=== PATIENT | male | born 1945 | race Caucasian/White ===

== ENCOUNTER 2016-08-03 07:49 | Inpatient (IN) ==
[2016-07-28 13:06] LABS: Appearance,Urine CLEAR; Bilirubin,Urine NEG (NEG); Color,Urine YELLOW; Glucose,Urine (UA) NEGATIVE (NEG); Leukocyte Esterase,Urine NEG /uL (NEG); Nitrate,Urine NEG (NEG); Protein,Urine NEG (NEG); Specific Gravity,Urine 1.023 (1.000-1.035); Urine Blood NEG mg/dL (<0.03); Urobilinogen,Urine NEG (NEG)
[2016-07-28 13:48] LABS: Basophils # (Auto) 0.1 K/mcL (0.0-0.3); Basophils % (Auto) 1.2 % (0.0-2.0); Eosinophils # (Auto) 0.2 K/mcL (0.0-0.7); Eosinophils % (Auto) 4.1 % (0.0-7.0); Granulocytes % (Auto) 60.6 % (38.0-78.0); Lymphocytes # (Auto) 1.3 K/mcL (1.5-4.8); Lymphocytes % (Auto) 27.1 % (15.5-49.0); Mean Cell Volume 84.8 fL (80.0-100.0); Mean Corpuscular HGB Conc 34.8 g/dL (31.0-36.0); Mean Corpuscular Hemoglobin 29.5 pg (26.0-34.0); Monocytes # (Auto) 0.3 K/mcL (0.1-0.9); Platelet Count 228 K/mcL (140-440); RBC 5.15 M/mcL (4.50-5.90); Red Cell Distribution Width 12.5 % (11.5-14.5)
[2016-07-28 13:58] LABS: Blood Urea Nitrogen 16 mg/dl (8-23)
[~2016-08-03 07:49] MED LIST: ACETAMINOPHEN 500 MG TABLET PO SCH; CELECOXIB 200 MG CAPSULE PO SCH; PREGABALIN 150 MG CAPSULE PO SCH; ceFAZolin 1 GM VIAL IV SCH; oxyCODONE 10 MG TAB.ER.12H PO SCH
[2016-08-03] MEDS ORDERED: KETOROLAC 30 MG, ROPIVACAINE HCL/PF 49.5 ML, EPINEPHrine 0.5 MG, 0.9 % SODIUM CHLORIDE ... IJ ONE (08:00)
[2016-08-03] MEDS ORDERED: 0.9 % SODIUM CHLORIDE 250 ML IV SCH (08:30)
[2016-08-03] MEDS ORDERED: GENTAMICIN SULFATE 800 MG/20 ML VIAL IR ONE (10:53)
[2016-08-03] MEDS ORDERED: ONDANSETRON 4 MG/2 ML VIAL IV ONE (12:30)
[2016-08-03] MEDS ORDERED: MIDAZOLAM 5 MG/5 ML VIAL IV ONE (12:30)
[2016-08-03] MEDS ORDERED: ROPIVACAINE HCL/PF 30 ML VIAL IJ ONE (12:30)
[2016-08-03] MEDS ORDERED: TRANEXAMIC ACID 1,000 MG/10 ML VIAL IV ONE (12:30)
[2016-08-03] MEDS ORDERED: FLUMAZENIL 0.1 MG/ML ML IV PRN (13:40)
[2016-08-03] MEDS ORDERED: ePHEDrine 50 MG/ML AMPUL IV PRN (13:40)
[2016-08-03] MEDS ORDERED: diphenhydrAMINE 50 MG/ML VIAL IV PRN (13:40)
[2016-08-03] MEDS ORDERED: ATROPINE SULFATE 0.4 MG/ML VIAL IV PRN (13:40)
[2016-08-03] MEDS ORDERED: ONDANSETRON 4 MG/2 ML VIAL IV PRN ×2 (13:40→14:11)
[2016-08-03] MEDS ORDERED: METOPROLOL TARTRATE 5 MG/5 ML VIAL IV PRN (13:40)
[2016-08-03] MEDS ORDERED: HYDROmorphone 2 MG/ML SYRINGE IV PRN ×2 (13:40→15:41)
[2016-08-03] MEDS ORDERED: NALOXONE HCL 0.4 MG/ML VIAL IV PRN (13:40)
[2016-08-03] MEDS ORDERED: BENZOCAINE/MENTHOL 1 LOZENGE PO PRN ×2 (13:40→14:11)
[2016-08-03] MEDS ORDERED: MEPERIDINE 25 MG/ML SYRINGE IV PRN (13:40)
[2016-08-03] MEDS ORDERED: METHOCARBAMOL 1,000 MG/10 ML VIAL IV PRN (13:40)
[2016-08-03] MEDS ORDERED: IPRATROPIUM/ALBUTEROL 3 ML AMPUL.NEB NEB PRN (13:40)
[2016-08-03] MEDS ORDERED: fentaNYL 100 MCG/2 ML VIAL IV PRN (13:40)
[2016-08-03] MEDS ORDERED: LACTATED RINGERS 1,000 ML IV SCH (13:45)
[2016-08-03] MEDS ORDERED: WARFARIN 5 MG TABLET PO SCH (14:00)
--- NOTE | 2016-08-03 14:10 | Brief Operative Note ---
Date of procedure: 08/03/16 Pre-op diagnosis: Right knee djd 3compartment Post-op diagnosis: same Procedure: right knee TKA Grafts/Implants: Yes (rob 7 fem 8 tibia 39 patella) Anesthesia: GETA Findings: djd of all three compartment Complications: none Complications Description: 08/03/16 14:10 none Surgeon: Andrae Garcia Health Assistant: Sarabjit Armstrong Estimated blood loss (cc): 50 Tourniquet Time (Minutes): 45 Specimens Removed/Pathology: none sent Condition: stable Disposition: PACU
[2016-08-03] MEDS ORDERED: BISACODYL 10 MG SUPP.RECT PR PRN (14:11)
[2016-08-03] MEDS ORDERED: TRANEXAMIC ACID 1,000 MG/10 ML VIAL IV SCH (14:11)
[2016-08-03] MEDS ORDERED: POLYETHYLENE GLYCOL 3350 17 GM PACKET PO PRN (14:11)
[2016-08-03] MEDS ORDERED: FLEETS ADULT ENEMA PR PRN (14:11)
--- NOTE | 2016-08-03 15:27 | Operative Note ---
DATE OF OPERATION: 08/03/2016 PREOPERATIVE DIAGNOSIS: Right knee medial compartment arthritis. POSTOPERATIVE DIAGNOSIS: Arthritis of all three compartments both medial, trochlear groove and lateral with full-thickness small defects. PROCEDURE: With these findings procedure was right total knee arthroplasty. SURGEON: Andrae Garcia MD. FEED MANAGER: Sarabjit Armstrong PA-C. ANESTHESIA: Spinal with IV sedation. COMPLICATIONS: None. TOTAL TOURNIQUET TIME: 45 minutes. DESCRIPTION OF PROCEDURE: Once this was confirmed, then the right knee was sterilely prepped and draped in the usual sterile fashion. We confirmed this was the operative site. One gram of tranexamic acid was given, and once this was done we exsanguinated the leg and inflated the tourniquet to 250 pounds of pressure. We made a midline incision. A mid vastus approach was performed. We inspected all compartments of the knee. This revealed severe arthritis of definitely the medial compartment, to a lesser degree the trochlear groove and laterally. He had a partially torn ACL as well. With these findings, we decided to proceed with a total knee arthroplasty. We placed an intramedullary guide hole in the femur and the tibia. With this, we used an intramedullary guide shivam on the femur, cutting this at 5 degrees of valgus and 3 degrees of external rotation. This was sized to a size 7 component. The cuts were made anterior and posterior with a block and chamfer cuts. We irrigated, removed osteophytes and then proceeded with the tibial cut. The tibia did have a significant deformity at the distal portion. With this, we made our cuts based on the proximal fragment. We cut the knee with anatomic alignment. We then cut this at a depth of 9 mm, sized the tibia to a size 9, removing the remnants of the meniscus and spurs posteriorly. We then capped the tibia with a size 8 baseplate, the femur with a size 7 femur. Standard thickness poly gave excellent alignment and fixation. He did have a deformity distal. This was due to a fracture. The treatment was at this point to proceed with resurfacing of the patella as this had a full-thickness defect as well. This measured approximately 26 mm. This was cut to 16 mm in thickness. We then used an oval offset 39 mm patellar button which was drilled into place. Once this was done, we made a small chamfer cut laterally and this tracked very well. We irrigated thoroughly and then cemented into place after preparing the bone with pulse lavage and CO2 to dry the bone. These components both were cemented into place. Excess cement was removed from the femur and the tibia. A standard thickness 9 mm poly was inserted. This was placed at 45 degrees, and we prepared the patella, cementing into place a 39 mm oval patella. This fit very nicely. We irrigated thoroughly and then deflated the tourniquet at 45 minutes. We controlled bleeding, washed the knee with irrigation to make sure there was no other bony or cement fragments. We kept the knee at 45 degrees until cement was dry. We irrigated thoroughly, and we then closed the capsule with #2 FiberWire and an 0 double-armed Maxon stitch. The skin was closed with 2-0 Vicryl and adhesive closure. The patient tolerated this well without complication. RBH:randy Job ID: [id number] Doc ID: [id number] Andrae Garcia MD
[2016-08-03] MEDS ORDERED: ACETAMINOPHEN 325 MG TABLET PO PRN (15:42)
[2016-08-03] MEDS ORDERED: HYDROcodone/APAP 10/325MG TABLET PO PRN (15:42)
--- NOTE | 2016-08-03 15:57 | XRay Report ---
HISTORY: Reason for Exam:Post-Op Total Knee FINDINGS: There is a well positioned total knee prosthesis. On the lateral image there is a cluster of calcifications located between the top of the patella and the adjacent metal prosthesis secured to the distal femur. The largest measures 2 x 10 mm. These calcifications are not seen in the AP view. There is a large spur along the anterior superior border of the patella. No fractures present.. IMPRESSION: Well-positioned knee prosthesis Soft tissue calcifications in the region of the patellofemoral joint. Interpreted and Authenticated by: Benjamin Cornell 08/03/16
[2016-08-03] MEDS: 0.45 % SODIUM CHLORIDE 1,000 ML IV SCH ×2 (16:57→22:21)
[2016-08-03] MEDS: KETOROLAC 15 MG/ML VIAL IV SCH ×2 (18:36→23:44)
[2016-08-03] MEDS ORDERED: SENNOSIDES 1 TABLET PO SCH (21:00)
[2016-08-03] MEDS ORDERED: TEMAZEPAM 15 MG CAPSULE PO PRN (21:00)
[2016-08-03] MEDS: ASPIRIN 325 MG ENTERIC COATED TABLET PO SCH (21:31)
[2016-08-03] MEDS: DOCUSATE SODIUM 100 MG CAPSULE PO SCH (21:31)
[2016-08-03] MEDS: ceFAZolin 1 GM VIAL IV SCH (21:32)
[2016-08-03] MEDS: 0.9 % SODIUM CHLORIDE 10 ML SYRINGE IV SCH (22:21)
[2016-08-04] MEDS: MAGNESIUM HYDROXIDE 30 ML ORAL.SUSP PO PRN ×2 (01:55→10:33)
[2016-08-04] MEDS: 0.45 % SODIUM CHLORIDE 1,000 ML IV SCH ×4 (02:29→21:35)
[2016-08-04] MEDS: ceFAZolin 1 GM VIAL IV SCH (04:21)
[2016-08-04] MEDS: KETOROLAC 15 MG/ML VIAL IV SCH ×4 (05:21→23:58)
[2016-08-04] MEDS: 0.9 % SODIUM CHLORIDE 10 ML SYRINGE IV SCH ×3 (06:23→21:35)
[2016-08-04] MEDS ORDERED: LIDOCAINE 2% URO-JET 5 ML JEL.PF.APP UR ONE (06:42)
[2016-08-04] MEDS ORDERED: PANTOPRAZOLE 40 MG TABLET PO SCH (07:30)
--- NOTE | 2016-08-04 07:44 | Orthopedic Progress Note ---
Subjective Patient information: Note initiated : 08/04/16 at 7:42 am Service Date, if different from initiated Date: [] Patient: Myron Arana 71 y/o M admitted on 08/03/16 for Right Partial Medial Ronald Uni Knee. Chief Complaint: [I attempted to see our patient and was instructed by Dr Myers that it "wasn't a good idea" as he was attempting to place a catheter due to urinary obstruction. ] Objective Vital signs: Vital Signs Temp Pulse Resp BP Pulse Ox 08/04/16 05:00 95 08/04/16 04:00 97.8 F 57 L 14 125/72 93 08/04/16 01:00 95 08/03/16 23:24 97.9 F 54 L 14 152/86 92 08/03/16 21:00 95 08/03/16 20:00 97.5 F L 59 L 14 149/86 95 08/03/16 17:55 98.0 F 55 L 18 142/77 96 08/03/16 17:09 96 08/03/16 16:55 50 L 18 163/107 95 08/03/16 16:25 60 18 157/83 98 08/03/16 15:55 56 L 18 177/75 95 08/03/16 15:40 60 18 157/78 97 08/03/16 15:25 48 L 16 149/82 99 08/03/16 15:10 96.1 F L 53 L 16 125/74 98 08/03/16 15:01 98.1 F 67 15 131/67 100 08/03/16 14:55 61 13 124/69 100 08/03/16 14:40 59 L 14 129/76 97 08/03/16 14:23 97.4 F L 57 L 16 136/66 97 08/03/16 08:08 97.8 F 47 L 16 135/83 100 Intake and Output 08/03/16 08/04/16 08/04/16 21:59 05:59 13:59 Intake Total 2340 / 2340 2200 / 2200 Output Total 751 / 751 920 / 920 Balance 1589 / 1589 1280 / 1280 Intake: IV 1500 / 1500 1000 / 1000 Sodium Chloride 0.45% 1, 1000 / 1000 000 ml @ 125 mls/hr IV . Q8H [facility] Rx#:[id number] Oral 840 / 840 1200 / 1200 Output: Urine Catheter Amount 150 / 150 Void Amount 550 / 550 920 / 920 Straight 375 / 375 Uretheral (Loya) 200 / 200 # of times incontinent of 1 / 1 urine Estimated Blood Loss 50 / 50 Other: Meal Dinner peaches, ice cream Percent of Meal Consumed 100% Feeding Ability Assist with Tray Set Up Weight 248 lb Intake & Output: Intake & Output 08/03/16 08/04/16 08/04/16 21:59 05:59 13:59 Intake Total 2340 / 2340 2200 / 2200 Output Total 751 / 751 920 / 920 Balance 1589 / 1589 1280 / 1280 Weight 248 lb Intake: IV 1500 / 1500 1000 / 1000 Sodium Chloride 0.45% 1, 1000 / 1000 000 ml @ 125 mls/hr IV . Q8H [facility] Rx#:[id number] Oral 840 / 840 1200 / 1200 Output: Urine Catheter Amount 150 / 150 Void Amount 550 / 550 920 / 920 Straight 375 / 375 Uretheral (Loya) 200 / 200 # of times incontinent of 1 / 1 urine Estimated Blood Loss 50 / 50 Other: Meal Dinner peaches, ice cream Percent of Meal Consumed 100% Feeding Ability Assist with Tray Set Up Incision: Yes healing Incision clean and dry: Yes Dressing: Yes clean, Yes dry Weight bearing status: partial Neurological exam IM: Yes motor sensory intact, Yes neurovascular intact Extremities exam IM: Yes Foot pink and warm, Yes neurovascular intact - Labs CBC & BMP: 08/04/16 05:20 07/28/16 10:53 Labs: Orthopedic Labs 07/28/16 10:53 PT 13.0 INR 1.0 APTT 33 08/04/16 07/28/16 05:20 10:53 Hgb 15.2 Hct 43.0 43.7 Assessment and Plan (1) Hx of total knee arthroplasty Pt is being taken to Surgery on an emergent basis by Dr Myers due to urology issues. Pt stable from Orthopaedic standpoint otherwise. Status: Acute
[2016-08-04] MEDS ORDERED: ceFAZolin 1 GM VIAL IV SCH (07:45)
--- NOTE | 2016-08-04 07:47 | Discharge Summary ---
Ortho Discharge - TKA - Patient Instructions Diet: Regular Diet Activity: activity as tolerated, weight bearing as tolerated Total Knee Protocol: For Total Knee: Start ROM MOY with stationary bike or rocking chair. Work on gaining full extension of knee. Posterior dislocation precautions provided. Hip abductor strengthening and gait training instructions provided. Apply Cryocuff as instructed. Dressing Care: May shower in 2 days Additional Dressing Instructions: Pt stable for Ortho D/c when cleared by Urology Patient Education: Total Knee Replacement (DC) - Problem Maintenance (1) Hx of total knee arthroplasty Status: Acute - Follow Up Plan Follow Up Appointments: Andrae Garcia MD [Physician] - 08/18/16 10:00 am Disposition: Home, Self-Care Prognosis: Good Rehab Potential: Good I certify that the patient requires SNF services: No Overall status at discharge: patient is progressing back to baseline - Orders For Discharge Prescriptions: Aspirin [Ecotrin] 325 mg PO BID #60 tab.ec Docusate Sodium [Colace] 100 mg PO BID #60 capsule HYDROcodone/APAP 10/325MG [[place] 10/325Mg] 1 - 2 tab PO Q4HP PRN #75 tablet PRN Reason: Pain
--- NOTE | 2016-08-04 08:34 | History and Physical Report ---
DATE OF ADMISSION: 08/03/2016 HISTORY OF PRESENT ILLNESS: The patient is a 71-year-old gentleman who I have seen in the past for urinary obstruction. Recently he has undergone knee surgery and could not urinate. A catheter had to be passed, and he was straight cathed twice. He still had a high residual, and the nurses attempted to pass a catheter. It appeared that they may have blown up the balloon in the prostate. I did attempt to pass filiform and follower and was unable and could not pass anywhere from a 14 to a 22 Nepali Loya coude tip. Again, I could not get this to pass. Therefore he presents now for cystoscopy and catheter placement. PAST MEDICAL HISTORY: Significant for arthritis, gastroesophageal reflux. ALLERGIES: None. CURRENT MEDICATIONS: As per listed in the hospital notes. PAST SURGICAL HISTORY: Photovaporization of the prostate, hemorrhoidectomy, craniectomy, appendectomy. REVIEW OF SYSTEMS: CARDIAC: Denies any chest pain. RESPIRATORY: No wheezing, coughing or asthma. PSYCHOLOGICAL: No depression or mood swings. PHYSICAL EXAMINATION: GENERAL: This is a pleasant gentleman in slight distress. VITAL SIGNS: As listed per notes. HEENT: Atraumatic, normocephalic. Extraocular movements are intact. Pupils equal and reactive to light and accommodation. No thyromegaly is noted. No mucosal lesions. NECK: Supple. Trachea is midline. HEART: Regular rate and rhythm. LUNGS: Clear to auscultation. ABDOMEN: Distended bladder. : Normal phallus. Circumcised. Blood at the meatus. Prostate exam was deferred. EXTREMITIES: Without clubbing, cyanosis or edema. NEUROLOGIC: Intact. IMPRESSION: Patient with urinary retention. This feels like a bladder neck contracture and I have talked to him about this. I have attempted to pass catheters and have been unable and so we will take him to surgery for visualization and catheter placement. I have talked to him about the procedure and complications, including bleeding, infection, pain, need for suprapubic tube, and he understands. Surgery will be scheduled this morning. He will receive preoperative antibiotics. DARRICK:randy Job ID: [id number] Doc ID: [id number] Cj Giordano MD
[2016-08-04] MEDS ORDERED: ceFAZolin 1 GM VIAL ONE (08:39)
--- NOTE | 2016-08-04 08:57 | Brief Operative Note ---
Date of procedure: 08/04/16 Pre-op diagnosis: bnc Procedure: dviu Grafts/Implants: No Anesthesia: GETA Findings: see note Complications: none Surgeon: Cj Giordano Specimens Removed/Pathology: none sent Condition: stable Disposition: PACU
[2016-08-04] MEDS ORDERED: NON FORMULARY MEDICATION 1 DOSE MISCELL (Aspirin [Adult Low Dose Aspirin Ec] 81 MG) PO SCH (09:00)
[2016-08-04] MEDS ORDERED: ONDANSETRON 4 MG/2 ML VIAL IV PRN ×2 (09:11→10:43)
[2016-08-04] MEDS ORDERED: FLUMAZENIL 0.1 MG/ML ML IV PRN (09:11)
[2016-08-04] MEDS ORDERED: MEPERIDINE 25 MG/ML SYRINGE IV PRN (09:11)
[2016-08-04] MEDS ORDERED: fentaNYL 100 MCG/2 ML VIAL IV PRN (09:11)
[2016-08-04] MEDS ORDERED: NALOXONE HCL 0.4 MG/ML VIAL IV PRN (09:11)
[2016-08-04] MEDS ORDERED: ePHEDrine 50 MG/ML AMPUL IV PRN (09:11)
[2016-08-04] MEDS ORDERED: HYDROmorphone 2 MG/ML SYRINGE IV PRN ×2 (09:11→10:43)
[2016-08-04] MEDS ORDERED: BENZOCAINE/MENTHOL 1 LOZENGE PO PRN ×2 (09:11→10:43)
[2016-08-04] MEDS ORDERED: diphenhydrAMINE 50 MG/ML VIAL IV PRN (09:11)
[2016-08-04] MEDS ORDERED: METOPROLOL TARTRATE 5 MG/5 ML VIAL IV PRN (09:11)
[2016-08-04] MEDS ORDERED: IPRATROPIUM/ALBUTEROL 3 ML AMPUL.NEB NEB PRN (09:11)
[2016-08-04] MEDS ORDERED: OPIUM/BELLADONNA ALKALOIDS 60 MG SUPP.RECT PR PRN (09:11)
[2016-08-04] MEDS ORDERED: ATROPINE SULFATE 0.4 MG/ML VIAL IV PRN (09:11)
[2016-08-04] MEDS ORDERED: LACTATED RINGERS 1,000 ML IV SCH (09:15)
[2016-08-04] MEDS: DOCUSATE SODIUM 100 MG CAPSULE PO SCH ×2 (10:31→21:34)
[2016-08-04] MEDS: ASPIRIN 325 MG ENTERIC COATED TABLET PO SCH ×2 (10:32→21:35)
--- NOTE | 2016-08-04 10:34 | Operative Note ---
DATE OF OPERATION: 08/04/2016 PREOPERATIVE DIAGNOSIS: Bladder neck contracture. POSTOPERATIVE DIAGNOSIS: Bladder neck contracture. PROCEDURE: Incision of bladder neck contracture and catheter placement. SURGEON: Cj Giordano MD. INDICATION: The patient is a 71-year-old gentleman status post photovaporization of the prostate in the past. Recently he has had knee surgery and found it difficult to urinate. Loya catheter was attempted to be passed and this was impossible. He presents now for cystoscopy and treatment. PROCEDURE: The patient was identified and consent was signed. He was given monitored anesthesia care, also 2 grams of Ancef. He was placed in lithotomy position and prepped and draped in a standard fashion. Cystourethroscopy showed normal-appearing urethra. At the bladder neck there was a 14-Canadian bladder neck contracture. I was then able to pass a 17 scope through this and placed a wire into the bladder. I then used the direct vision urethrotome and made an incision at the bladder neck at the 11, 1, 3 and 9 o'clock positions. This opened up the prostate well and was able to enter the bladder. A 20-[place] tip catheter was placed without difficulty and this drained clear urine. The patient was then awoken and taken to recovery room in stable condition. He tolerated the procedure well. RAline:randy Job ID: [id number] Doc ID: [id number] Cj Giordano MD
[2016-08-04] MEDS ORDERED: BISACODYL 10 MG SUPP.RECT PR PRN (10:43)
[2016-08-04] MEDS ORDERED: ACETAMINOPHEN 325 MG TABLET PO PRN (10:43)
[2016-08-04] MEDS ORDERED: FLEETS ADULT ENEMA PR PRN (10:43)
[2016-08-04] MEDS ORDERED: MAGNESIUM HYDROXIDE 30 ML ORAL.SUSP PO PRN (10:43)
[2016-08-04] MEDS ORDERED: HYDROcodone/APAP 10/325MG TABLET PO PRN (10:43)
[2016-08-04] MEDS ORDERED: TEMAZEPAM 15 MG CAPSULE PO PRN (10:43)
[2016-08-04] MEDS ORDERED: POLYETHYLENE GLYCOL 3350 17 GM PACKET PO PRN (10:43)
[2016-08-04] MEDS ORDERED: SENNOSIDES 1 TABLET PO SCH (21:00)
[2016-08-05] MEDS: 0.45 % SODIUM CHLORIDE 1,000 ML IV SCH ×2 (00:58→11:37)
[2016-08-05] MEDS: KETOROLAC 15 MG/ML VIAL IV SCH ×2 (05:04→11:52)
[2016-08-05] MEDS: 0.9 % SODIUM CHLORIDE 10 ML SYRINGE IV SCH (05:05)
--- NOTE | 2016-08-05 07:11 | Orthopedic Progress Note ---
Subjective Patient information: Note initiated : 08/05/16 at 7:10 am Service Date, if different from initiated Date: [] Patient: Myron Arana 71 y/o M admitted on 08/03/16 for Right Partial Medial Ronald Uni Knee. Chief Complaint: [feels much better amb well ] Objective Vital signs: Vital Signs Temp Pulse Resp BP BP Pulse Ox 08/05/16 03:35 97.8 F 67 14 115/60 92 08/05/16 01:00 95 08/05/16 00:00 98.2 F 66 14 154/87 94 08/04/16 21:00 95 08/04/16 20:00 97.5 F L 75 14 129/77 97 08/04/16 17:00 97 08/04/16 15:16 96.9 F L 60 17 149/80 97 08/04/16 13:40 93 08/04/16 12:25 64 156/87 97 08/04/16 11:30 98.3 F 72 157/86 94 08/04/16 11:00 63 157/89 95 08/04/16 10:30 71 174/91 95 08/04/16 10:15 59 L 157/91 96 08/04/16 10:00 67 164/84 98 08/04/16 09:45 97.6 F 64 12 170/91 98 08/04/16 09:30 98.9 F 64 19 120/61 97 08/04/16 09:10 64 14 128/61 94 08/04/16 08:57 99.1 F 70 16 138/78 97 08/04/16 07:56 97.2 F L 58 L 16 164/76 93 Intake and Output 08/04/16 08/05/16 08/05/16 21:59 05:59 13:59 Intake Total 300 / 300 200 / 200 Output Total 1100 / 1100 900 / 900 Balance -800 / -800 -700 / -700 Intake: Oral 300 / 300 200 / 200 Output: Urine Catheter Amount 1100 / 1100 900 / 900 Other: Weight 249 lb 8 oz Intake & Output: Intake & Output 08/04/16 08/05/16 08/05/16 21:59 05:59 13:59 Intake Total 300 / 300 200 / 200 Output Total 1100 / 1100 900 / 900 Balance -800 / -800 -700 / -700 Weight 249 lb 8 oz Intake: Oral 300 / 300 200 / 200 Output: Urine Catheter Amount 1100 / 1100 900 / 900 Incision: Yes healing Incision clean and dry: Yes Dressing: Yes clean Weight bearing status: full Neurological exam IM: Yes oriented X3, Yes neurovascular intact Extremities exam IM: Yes joint swelling, Yes Foot pink and warm, Yes neurovascular intact (dc home) - Labs CBC & BMP: 08/04/16 05:20 07/28/16 10:53 Labs: Orthopedic Labs 07/28/16 10:53 PT 13.0 INR 1.0 APTT 33 08/04/16 07/28/16 05:20 10:53 Hgb 15.2 Hct 43.0 43.7
[2016-08-05] MEDS ORDERED: PANTOPRAZOLE 40 MG TABLET PO SCH (07:30)
--- NOTE | 2016-08-05 07:48 | General Surgery Progress Note ---
Subjective Narrative: Note initiated : 08/05/16 at 7:47 am Service Date, if different from initiated Date: [] Patient: Myron Arana 71 y/o M admitted on 08/03/16 for Right Partial Medial Ronald Uni Knee. Chief Complaint: [] Patient did well overnight with his catheter. His urine is clear this morning and I removed the catheter. We will plan to follow up with him in 2 weeks. he should urinate before she goes home. Objective Temp Pulse Resp BP Pulse Ox 97.8 F 67 14 115/60 95 08/05/16 03:35 08/05/16 03:35 08/05/16 03:35 08/05/16 03:35 08/05/16 07:26 - Additional Data Intake & Output - Last 24 hours: Intake & Output 08/03/16 08/04/16 08/05/16 08/06/16 05:59 05:59 05:59 05:59 Intake Total 4540 / 4540 2740 / 2740 Output Total 1671 / 1671 3725 / 3725 Balance 2869 / 2869 -985 / -985 Weight 248 lb 249 lb 8 oz - Labs 08/04/16 05:20 07/28/16 10:53 Medical - PN: A/P - Time Spent With Patient Total time spent is greater than 50% in coordination of care (as documented) at patient's floor/unit and/or counseling patient:
[2016-08-05] MEDS: DOCUSATE SODIUM 100 MG CAPSULE PO SCH (09:58)
[2016-08-05] MEDS: ASPIRIN 325 MG ENTERIC COATED TABLET PO SCH (09:58)
[2016-08-05] MEDS ORDERED: PNEUMOCOCCAL 23-VAL P-SAC VAC 0.5 ML VIAL IM ONE ×2 (10:00)
--- NOTE | 2016-08-21 14:06 | Discharge Summary ---
Ortho Discharge - TKA - Patient Instructions Diet: Regular Diet Activity: activity as tolerated, weight bearing as tolerated Total Knee Protocol: For Total Knee: Start ROM MOY with stationary bike or rocking chair. Work on gaining full extension of knee. Posterior dislocation precautions provided. Hip abductor strengthening and gait training instructions provided. Apply Cryocuff as instructed. Patient Education: Hydrocodone/Acetaminophen (By mouth), Total Knee Replacement (DC), Loya Catheter Placement and Care (DC) Additional Instructions: [facility] [phone] with Jessica Friday 08/11 @ 9:15 AM. Do the exercises at home that Physical therapy gave you. Wear comfortable clothes (shorts). Take photo ID and insurance cards with you to physical therapy and to excelsior picker walker at [facility]. Consider taking pain meds 45 min before physical therapy You have Dermabond (a dressing with a mesh-like appearance), leave open to air. You may start showering on post op day #2. The Dermabond dressing can get wet, do not scrub dressing. Pat dry. Use over the counter stool softeners or laxatives to avoid constipation associated with narcotic use. Use your Cryocuff or ice packs as directed, on for 20 minutes at a time throughout the day. This and elevation will help with pain and swelling. Call your physician for fever greater than 100.5 or pain not controlled by medication. Your prescriptions are with your discharge information. [facility] Take your Aspirin twice daily as prescribed by your doctor for 30 days to prevent blood clots. - Follow Up Plan Follow Up Appointments: Andrae Garcia MD [Physician] - 08/18/16 10:00 am Cj Giordano MD [Physician] - (Dr Giordano will call you tomorrow) Disposition: Home, Self-Care Prognosis: Good Rehab Potential: Good I certify that the patient requires SNF services: No - Orders For Discharge Prescriptions: Aspirin [Ecotrin] 325 mg PO BID #60 tab.ec Docusate Sodium [Colace] 100 mg PO BID #60 cap HYDROcodone/APAP 10/325MG [[place] 10/325Mg] 1 - 2 tab PO Q4HP PRN #75 tab PRN Reason: Pain Additional Discharge Orders: Physical Therapy at Discharge - TKA Location: Determined By Patient Physical Therapy at Discharge - TKA Location: Determined By Patient CPM Discharge Order Location: Determined By Patient Toilet Riser Discharge Order Location: Determined By Patient Toilet Riser Discharge Order Location: Determined By Patient Walker Location: Determined By Patient Walker Location: Determined By Patient
== END 2016-08-05 14:30 | disposition home or self-care (01) | DRG 470 ==
LOC: SUR 07:49 → MEDSUR 15:07
PROVIDERS: ADMIT Orthopaedic Surgery; ATTEND Orthopaedic Surgery